=== PATIENT | female | born 1985 | race Caucasian/White ===

== ENCOUNTER → 2016-02-27 | Outpatient (CLI) | payer MEDICAID ==
[~2016-02-27] MED LIST: AMOX500T PO; BLOOD GLUCOSE T1 TES; HYDR25TA5 PO; IBUP-232 PO; LANC1MIS74; NORE1CAP PO; OXYC1TAB63 PO; PREN1PAK2 PO; SENN1TAB PO
== END ==
LOC: HPND 08:17
PROVIDERS: ATTEND Obstetrics & Gynecology Obstetrics
DX: O24.410 Gestational diabetes mellitus in pregnancy, diet controlled (principal); O34.212 Maternal care for vertical scar from previous cesarean delivery; O09.293 Supervision of pregnancy with other poor reproductive or obstetric history, third trimester; Z3A.34 34 weeks gestation of pregnancy
CPT/HCPCS: 76816

== ENCOUNTER 2016-02-28 12:25 | Emergency (ER) | payer MEDICAID ==
[~2016-02-28 12:25] MED LIST changes: -AMOX500T PO; -HYDR25TA5 PO; -IBUP-232 PO; -NORE1CAP PO; -OXYC1TAB63 PO; -SENN1TAB PO
[2016-02-28 12:45] VITALS: BP 135/82; PULSE 112
[2016-02-28] MEDS ORDERED: LACTATED RINGER'S 1000 ML INJ 1,000 ML IV SCH (13:02)
--- NOTE | 2016-02-28 13:13 | PD ---
HPI Travel History International Travel<30 Days: No Contact w/Intl Traveler<30Days: No Known Affected Area: No History of Present Illness HPI This patient is a 30-year-old 4 para 1 203 EDC is April 08, 2016 presently at 34 weeks and 2 days she presents the chief complaint of irregular cramping states occasionally her belly will get hard this is occurred for several weeks however it increased last night no ruptured membranes no vaginal bleeding the baby is active Care with [facility] course is significant for history of gestational diabetes fasting blood sugar 92 2 hour postprandials between 120 and 130 Patient is a previous 3 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 8 oz. for abruption at 35 weeks Second baby born 2006 female weight 5 lbs. 13 oz. repeat at 36 weeks Third baby born 2009 female weight 7 lbs. 1 oz. repeat at 39 weeks Past Surgical History Narrative Surgical 3 Family History Family History: Negative Social History Alcohol Use: No Tobacco Use: No Substance Abuse: No Allergies-Medications (Allergen,Severity, Reaction): Coded Allergies: No Known Allergies (Verified , 02/28/16) Home Meds Active Scripts Blood Glucose Test Strips 1 Patricia Patricia #120 EA .ROUTE DIRECTED Ref 6 Prov:Isabell Rios 01/26/16 Onetouch Delica Lancets E 1 Mis Mis #100 EA .ROUTE DIRECTED Ref 6 Prov:Isabell Rios 01/26/16 Reported Medications W/O Vit A W/ Fe Carbo Pack (Citranatal Dha Pack)27-1 & 250 Mg Pack1 Ea PO DAILY #6 BLISTER Ref 0 30 day supply. 12/27/15 Review of Systems Gastrointestinal: Abdominal Pain (irregular contractions) Physical Exam Narrative GENERAL: Well-nourished, well-developed patient. Alert oriented 3 and cooperative in no acute distress CARDIOVASCULAR: Regular rate and rhythm without murmurs, gallops, or rubs. RESPIRATORY: Breath sounds equal bilaterally. No accessory muscle use. ABDOMEN/GI: Gravid size greater than dates Gravid to [-] weeks size Fundal Height: [-] GENITOURINARY: Exam done by the nursing staff External Genitalia: intact and normal in appearance BUS glands: [-] Cervix: [-] Posterior Dilatation: [-] 1 Effacement: [-] 25% effaced Station: [-] -3 station Presentation: [-] Vertex Membranes: [intact Uterine Contractions: [-] Irregular and occasional FHT's: Category: [-] 1 Baseline: [-] 140 Reactive: [-]+ Accelerations to 165 Variability: [-] Moderate [id number]-[id number] variability Decels: [-] NEUROLOGICAL: Awake and alert. Motor and sensory grossly within normal limits. Five out of 5 muscle strength in all muscle groups. Normal speech. Data Data Vital Signs Reviewed: Yes (blood pressures 135/82 pulse is 112 she is afebrile) Orders Urinalysis - C+S If Indicated (02/28/16 13:00) Vital Signs (Adult) .ON ADMISSION (02/28/16 13:02) ^ Labor Status (02/28/16 13:02) ^ Hydration (02/28/16 13:02) Lactated Ringer's 1000 Ml Inj (Lr 1000 M (02/28/16 13:02) MDM Medical Record Reviewed: No Interpretation(s) 30-year-old 4 para 1 203 at 34 weeks and 2 days Rule out labor [place] ks contractions History of labor Previous 3 Narrative Course / MDM Patient has been hydrated with IV fluids 2 L No cervical change Category 1 tracing Culture not indicated on urinalysis Accelerations feeling much better We'll discharge home kick counts by mouth fluid hydration rest Keep her next appointment with [facility] and have them schedule her a consult for scheduling Plan External monitoring IV fluid hydration Urinalysis Rest Reevaluation Diagnosis Diagnosis: Primary Impression: [place] contractions Additional Impressions: with 34 completed weeks gestation Previous section Disposition: 01 DISCHARGE HOME Condition: Stable Melody Pritchard MD Feb 28, 2016 13:13
[2016-02-28 13:36] LABS: BLOOD, URINE NEG (NEG); COMMENT (UR) CULT NOT INDICATED; CULTURE IF INDICATED CULT NOT INDICATED; GLUCOSE,URINE NEG (NEG); KETONE, URINE 10 mg/dL (NEG); MUCUS URINE FEW /lpf (OCC); NITRITE,URINE NEG (NEG); PH, URINE 6.5 (5.0-8.5); SQUAMOUS EPITHELIAL CELL URINE 11 /hpf (0-5); URINE COLOR LIGHT-YELLOW (YELLW/STRAW)
[2016-03-12] MEDS ORDERED: AMOX500T PO (10:35)
[2016-04-29] MEDS ORDERED: NORE1CAP PO (09:23)
[2016-07-04] MEDS ORDERED: HYDR25TA5 PO (11:17)
== END 2016-02-28 15:38 | disposition home or self-care (01) ==
LOC: HOBED 12:25
DX: O47.03 False labor before 37 completed weeks of gestation, third trimester (principal); O24.419 Gestational diabetes mellitus in pregnancy, unspecified control; O34.219 Maternal care for unspecified type scar from previous cesarean delivery; Z3A.34 34 weeks gestation of pregnancy
CPT/HCPCS: 59025; 81001; 96360; 96361; 99284; J7120

== ENCOUNTER 2016-03-25 01:38 | Inpatient (IN) | payer MEDICAID ==
[~2016-03-25] VITALS: Ht 165.1 cm; Wt 83.5 kg
[~2016-03-25 01:38] MED LIST changes: +AMOX500T PO
[2016-03-25] MEDS ORDERED: LACTATED RINGER'S 1000 ML INJ 1,000 ML IV ONE (02:23)
--- NOTE | 2016-03-25 02:33 | HHI.HP ---
HPI Chief Complaint water broke Date Seen: Mar 25, 2016 Travel History International Travel<30 Days: No Contact w/Intl Traveler<30Days: No Known Affected Area: No History of Present Illness HPI This patient is a 30-year-old A 2 is 3 now at 38 wks who presents with spontaneous ruptured membranes this morning, her amnio sure is positive, no bleeding, she is chela irregularly, heart rate tracing is reactive, she has had her consult last week and here with us and she is going to [facility] for [facility] Para: 3 : 6 : 2 History Past Medical History Narrative Medical Diet controlled gestational diabetic Obstetric History Obstetric History 3 previous C-sections one termination and 1 miscarriage Past Surgical History Narrative Surgical 3 sections, one elective termination of Family History Family History: Negative Social History Alcohol Use: No Tobacco Use: No Substance Abuse: No Allergies-Medications (Allergen,Severity, Reaction): Coded Allergies: No Known Allergies (Verified , 03/19/16) Home Meds Reported Medications W/O Vit A W/ Fe Carbo Pack (Citranatal Dha Pack)27-1 & 250 Mg Pack1 Ea PO DAILY #6 BLISTER Ref 0 30 day supply. 12/27/15 Discontinued Scripts Amoxicillin 500 Mg Zlt125 Mg PO TID #21 TAB Ref 0 Prov:Bhavesh Warren MD 03/12/16 Blood Glucose Test Strips 1 Patricia Patricia #120 EA .ROUTE DIRECTED Ref 6 Prov:Isabell Rios 01/26/16 Onetouch Delica Lancets E 1 Mis Mis #100 EA .ROUTE DIRECTED Ref 6 Prov:Isabell Rios 01/26/16 Review of Systems General / Constitutional: No: Fever, Weight Gain, Chills, Other Eyes: No: Diploplia, Blurred Vision, Visual changes, Pain, Photophobia HENT: No: Headaches, Vertigo, Lightheadedness Cardiovascular: No: Irregular Rhythm, Chest Pain or Discomfort, Palpitations, Tachycardia, Syncope, Varicosities, Edema, Cyanosis Respiratory: No: Cough, Short of Breath, Other Gastrointestinal: No: Nausea, Vomiting, Diarrhea Genitourinary: No: Decreased Urinary Output, Oliguria Musculoskeletal: No: Limited ROM, Weakness, Cramping, Edema, Pain Skin: No Rash, No Itching, No Dryness, No Lumps, No Change in Pigmentation, No Change in Nails, No Alopecia, No Lesions Neurologic: No: Weakness, Dizziness, Syncope, Focal Abnormalities, Coordination Problem, Headache, Slurred Speech, Seizures Psychiatric: No: Depression, Suicidal Ideations, Homicidal Ideation Endocrine: No: Heat Intolerance, Cold Intolerance, Polydipsia, Polyuria, Other Physical Exam Narrative GENERAL: Well-nourished, well-developed patient. SKIN: Warm and dry. HEAD: Normocephalic and atraumatic. EYES: No scleral icterus. No injection or drainage. ENT: No nasal drainage noted. Mucous membranes pink. Airway patent. NECK: Supple, trachea midline. No JVD. CARDIOVASCULAR: Regular rate and rhythm without murmurs, gallops, or rubs. RESPIRATORY: Breath sounds equal bilaterally. No accessory muscle use. BREASTS: Bilateral exam showed no masses , no retractions, no nipple discharge. ABDOMEN/GI: Abdomen soft, non-tender, bowel sounds present, no rebound, no guarding Gravid to [38-] weeks size Fundal Height: [-38 cm] GENITOURINARY: External Genitalia: intact and normal in appearance BUS glands: [-] Cervix: [3-] Dilatation: [-3] Effacement: [50-] Station: [-3] Presentation: [-vtx] Membranes: ruptured] Uterine Contractions: [-irreg] FHT's: Category: [-1] Baseline: [133-] Reactive: [-yes] Variability: [mod-] Decels: [none-] EXTREMITIES: No cyanosis or edema. BACK: Nontender without obvious deformity. No CVA tenderness. NEUROLOGICAL: Awake and alert. Motor and sensory grossly within normal limits. Five out of 5 muscle strength in all muscle groups. Normal speech. Data Data Orders Ob (2e) Additional Admit Info (03/25/16 02:07) Admit To Inpatient (03/25/16 ) Vital Signs (Adult) .ON ADMISSION (03/25/16 02:23) Activity Oob Ad Concetta (03/25/16 02:23) ^ Heart (03/25/16 02:23) Urinary Catheter Management RAI.Q8H (03/25/16 02:23) ^ Preps (03/25/16 02:23) Scd / Osbaldo / Foot Pump RAI.QSHIFT (03/25/16 02:23) ^ Ultrasound For Locatio (03/25/16 02:23) Diet Npo (03/25/16 Breakfast) Lactated Ringer's 1000 Ml Inj (Lr 1000 M (03/25/16 02:23) Lactated Ringer's 1000 Ml Inj (Lr 1000 M (03/25/16 02:53) Citric Acid-Sodium Citrate Liq (Bicitra (03/25/16 04:00) Type And Screen (03/25/16 02:23) Complete Blood Count With Diff (03/25/16 02:23) Urinalysis - C+S If Indicated (03/25/16 02:23) Cefazolin Inj (Ancef Inj) (03/25/16 03:30) Specimen To Be Collected PRN (03/25/16 02:23) Rapid Plasmin Reagin Screen (03/25/16 02:24) Assessment/Plan Assessment and Plan This patient is 30-year-old previous 3 for repeat section. She is been seen by Kenzie Rios & [facility] had her consult last week. She presents now with spontaneous rupture the membranes early labor. heart rate tracing is reactive contractions are irregular. She is not having her tubes tied. Plan to proceed. Repeat at this time for delivery Pan Coleman II, MD Mar 25, 2016 02:33
[2016-03-25] MEDS ORDERED: OXYTOCIN 10 UNIT/ML AMP ONE (02:34)
[2016-03-25 02:37] LABS: BACTERIA, URINE RARE /hpf; BLOOD, URINE NEG (NEG); GLUCOSE,URINE NEG (NEG); KETONE, URINE TRACE mg/dL (NEG); NITRITE,URINE NEG (NEG); PH, URINE 6.5 (5.0-8.5); SQUAMOUS EPITHELIAL CELL URINE <1 /hpf (0-5); TRANSITIONAL EPI CELLS, URINE <1 /hpf; URINE COLOR LIGHT-YELLOW (YELLW/STRAW)
[2016-03-25 02:37] LABS: AUTOMATED NEUTROPHIL # 10.3 TH/MM3 (1.8-7.7); BASOPHIL # 0.1 TH/MM3 (0-0.2); BASOPHIL % 0.8 % (0.0-2.0); EOSINOPHIL # 0.1 TH/MM3 (0-0.4); EOSINOPHIL % 0.6 % (0.0-4.0); HEMATOCRIT 35.9 % (35.0-46.0); HEMO FLAGS DIFF FINAL; LYMPH % 15.5 % (9.0-44.0); LYMPHOCYTE # 2.1 TH/MM3 (1.0-4.8); MEAN CELL VOLUME 87.6 FL (80.0-100.0); MEAN CORPUSCULAR HEMOGLOBIN 29.9 PG (27.0-34.0); MEAN CORPUSCULAR HGB CONC 34.2 % (32.0-36.0); MONO % 5.4 % (0.0-8.0); NEUT % 77.7 % (16.0-70.0); PLATELET COUNT 245 TH/MM3 (150-450); RED CELL DISTRIBUTION WIDTH 14.8 % (11.6-17.2); WHITE BLOOD COUNT 13.3 TH/MM3 (4.0-11.0)
[2016-03-25] MEDS ORDERED: MORPHINE SULFATE PF 5 MG/10 ML VIAL ONE (02:38)
[2016-03-25] MEDS ORDERED: ONDANSETRON HCL 4 MG/2 ML VIAL ONE (02:38)
[2016-03-25] MEDS ORDERED: DICLOFENAC SODIUM 37.5 MG/ML VIAL IV PUSH ONE (02:38)
[2016-03-25] MEDS ORDERED: MORPHINE SULFATE PF 5 MG/10 ML VIAL IT ONE (02:50)
[2016-03-25 02:51] LABS: COMMENT (UR) CULT NOT INDICATED; CULTURE IF INDICATED CULT NOT INDICATED
[2016-03-25] MEDS ORDERED: LACTATED RINGER'S 1000 ML INJ 1,000 ML IV SCH ×2 (02:53→08:58)
[2016-03-25] MEDS ORDERED: METOCLOPRAMIDE HCL 10 MG/2 ML VIAL IV ONE (03:10)
[2016-03-25] MEDS ORDERED: OXYTOCIN INJ 20 UNITS in LACTATED RINGER'S 1000 ML INJ 1,000 ML IV ONE ×2 (03:16→04:00)
[2016-03-25] MEDS ORDERED: ZOLPIDEM TARTRATE 5 MG TAB PO PRN (04:00)
[2016-03-25] MEDS ORDERED: SODIUM CHLORIDE 0.9% FLUSH 5 ML FLUSH IV PRN (04:00)
[2016-03-25] MEDS ORDERED: KETOROLAC TROMETHAMINE 60 MG/2 ML (IM) VIAL IM PRN (04:00)
[2016-03-25] MEDS ORDERED: SIMETHICONE 80 MG CHEWABLE TAB PO PRN (04:00)
[2016-03-25] MEDS ORDERED: ONDANSETRON HCL 4 MG/2 ML VIAL IV PUSH PRN (04:00)
[2016-03-25] MEDS ORDERED: ACETAMINOPHEN 325 MG TAB PO PRN (04:00)
[2016-03-25] MEDS ORDERED: CITRIC ACID-SODIUM CITRATE LIQ 30 ML UDC PO SCH (04:00)
[2016-03-25] MEDS ORDERED: OXYTOCIN 30 UNITS-500ML PREMIX 500 ML IV ONE (04:00)
[2016-03-25] MEDS ORDERED: OXYTOCIN 30 UNITS-500ML PREMIX 500 ML ONE (05:16)
--- NOTE | 2016-03-25 07:22 | HHI.OB ---
Subjective Post Operative Day: 0 Remarks POD0 from rpt c/s #4. Pain well-controlled. Delivered 4 hours ago, not yet eating, voided, stooled, or ambulated. Intends to formula feed, since she has never tried breast feeding, but would be open to having market consultant come talk to her. Would like OCP for contraception. Discussed need to take progesterone only pill if she breastfeed, which appeared to lessen her interest. Will f/u with [facility]. Denies fevers/chills, SOB/chest pain, calf pain. Objective Vitals/I&O reviewed in OB trace Result Diagram: 03/25/16 0230 Objective Remarks GENERAL: Well-nourished, well-developed patient. CARDIOVASCULAR: Regular rate and rhythm without murmurs, gallops, or rubs. RESPIRATORY: Breath sounds equal bilaterally. No accessory muscle use. ABDOMEN/GI: Abdomen soft, non-tender, bowel sounds present. Incision: Clean, dry and intact. Fundus: Firm, non-tender at umbilicus. GENITOURINARY: Light to moderate bleeding. EXTREMITIES: No cyanosis or edema, non-tender, without signs of DVT. Medications and IVs Current Medications Medications (Trade) Dose Ordered Sig/Leroy Route Start Time Stop Time Status Last Admin Lactated Ringer's 1,000 ml @ 100 mls/hr Q10H IV 03/25/16 08:58 03/26/16 04:57 (Pitocin 30 Units-NS 500 ml Premix) 500 ml @ 100 mls/hr ONCE ONCE IV 03/25/16 04:00 03/25/16 08:59 (NS Flush) 2 ml BID IV 03/25/16 09:00 (NS Flush) 2 ml UNSCH PRN IV 03/25/16 04:00 (Mylicon Chew) 80 mg QID PRN PO 03/25/16 04:00 (Tylenol) 650 mg Q6H PRN PO 03/25/16 04:00 (Motrin) 600 mg Q6H PRN PO 03/25/16 04:00 (Percocet 5-325 Mg) 1 tab Q4H PRN PO 03/25/16 04:00 (Percocet 5-325 Mg) 2 tab Q4H PRN PO 03/25/16 04:00 (Sita-Colace) 2 tab Q12H PRN PO 03/25/16 04:00 (Ambien) 5 mg HS PRN PO 03/25/16 04:00 (M-M-R Ii Inj) 0.5 ml ONCE ONCE SQ 03/26/16 16:00 03/26/16 16:01 (Boostrix Inj) 0.5 ml ONCE ONCE IM 03/26/16 16:00 03/26/16 16:01 Ondansetron HCl 4 mg 4 mg Q6H PRN IV PUSH 03/25/16 04:00 (Ancef Inj/NS Inj) 100 ml @ 200 mls/hr Q8H IV 03/25/16 11:00 03/25/16 19:29 Assessment/Plan Problem List: (1) Delivery by section at 37-39 weeks of gestation due to labor (2) GBS carrier Assessment and Plan 30 year-old female PODO at 38/0 from repeat c/s (#4) and SROM/early labor. 1. Single Delivery, 38 weeks gestation -Continue routine care -Motrin and Percocet PRN pain. Miralax for Bowel Reg. PRN benadryl and PRN zofran on board. -Encouraged OOB. Advised pelvic rest for 6 wks -Follow up OB appointment in 1 week and 6 weeks with [facility] -Feeding baby by formula, as has never tried . Would be open to visit from Heading Repairer -Pt requests OCP for preferred control -H/H POD0 wnl. Mom blood type O+, Rhogam not indicated. -RPR pending 2. GBS+ -delivered via c/s, did not receive PNC DW: Dr. Talley, Dr. Coleman Discharge Planning POD0 today. Anticipate d/c in 2-3 days with VSS and pain control. Louise Escoto MD R1 Mar 25, 2016 07:22
--- NOTE | 2016-03-25 08:13 | HHI.OB ---
Subjective Post Day: 0 Remarks This patient is now 5 hours postop from a repeat section done about 3 AM this morning, she is doing well alert and active in her room, her bandages dry uterus is firm, will begin progressive postop management with advancement of diet and ambulation, seen with the family medicine residents agree with their evaluation and plan Objective Objective Remarks GENERAL: Well-nourished, well-developed patient. CARDIOVASCULAR: Regular rate and rhythm without murmurs, gallops, or rubs. RESPIRATORY: Breath sounds equal bilaterally. No accessory muscle use. ABDOMEN/GI: Abdomen soft, non-tender. Fundus: Firm, non-tender at umbilicus. GENITOURINARY: Light to moderate bleeding. EXTREMITIES: No cyanosis or edema, non-tender, without signs of DVT. Medications and IVs Current Medications Medications (Trade) Dose Ordered Sig/Leroy Route Start Time Stop Time Status Last Admin Lactated Ringer's 1,000 ml @ 100 mls/hr Q10H IV 03/25/16 08:58 03/26/16 04:57 (Pitocin 30 Units-NS 500 ml Premix) 500 ml @ 100 mls/hr ONCE ONCE IV 03/25/16 04:00 03/25/16 08:59 (NS Flush) 2 ml BID IV 03/25/16 09:00 (NS Flush) 2 ml UNSCH PRN IV 03/25/16 04:00 (Mylicon Chew) 80 mg QID PRN PO 03/25/16 04:00 (Tylenol) 650 mg Q6H PRN PO 03/25/16 04:00 (Motrin) 600 mg Q6H PRN PO 03/25/16 04:00 (Percocet 5-325 Mg) 1 tab Q4H PRN PO 03/25/16 04:00 (Percocet 5-325 Mg) 2 tab Q4H PRN PO 03/25/16 04:00 (Sita-Colace) 2 tab Q12H PRN PO 03/25/16 04:00 (Ambien) 5 mg HS PRN PO 03/25/16 04:00 (M-M-R Ii Inj) 0.5 ml ONCE ONCE SQ 03/26/16 16:00 03/26/16 16:01 (Boostrix Inj) 0.5 ml ONCE ONCE IM 03/26/16 16:00 03/26/16 16:01 Ondansetron HCl 4 mg 4 mg Q6H PRN IV PUSH 03/25/16 04:00 (Ancef Inj/NS Inj) 100 ml @ 200 mls/hr Q8H IV 03/25/16 11:00 03/25/16 19:29 Assessment/Plan Problem List: (1) Delivery by section at 37-39 weeks of gestation due to labor (2) GBS carrier Assessment and Plan 30 year-old female PODO at 38/0 from repeat c/s (#4) and SROM/early labor. 1. Single Delivery, 38 weeks gestation -Continue routine care -Motrin and Percocet PRN pain. Miralax for Bowel Reg. PRN benadryl and PRN zofran on board. -Encouraged OOB. Advised pelvic rest for 6 wks -Follow up OB appointment in 1 week and 6 weeks with [facility] -Feeding baby by formula, as has never tried . Would be open to visit from [employer] Diameter Gauger -Pt requests OCP for preferred control -H/H POD0 wnl. Mom blood type O+, Rhogam not indicated. -RPR pending 2. GBS+ -delivered via c/s, did not receive PNC DW: Dr. Talley, Dr. Coleman Discharge Planning POD0 today. Anticipate d/c in 2-3 days with VSS and pain control. Pan Coleman II, MD Mar 25, 2016 08:13
[2016-03-25] MEDS ORDERED: OXYTOCIN 30 UNITS-500ML PREMIX 500 ML IV PRN (14:00)
[2016-03-25] MEDS: oxyCODONE/ACETAMINOPHEN 5 MG/325 MG TAB PO PRN ×2 (15:36→22:09)
[2016-03-25] MEDS: IBUPROFEN 600 MG TAB PO PRN ×2 (15:38→22:09)
[2016-03-25] MEDS: DOCUSATE SODIUM 50 MG/SENNA 8.6 MG TAB PO PRN (22:09)
[2016-03-26] MEDS: oxyCODONE/ACETAMINOPHEN 5 MG/325 MG TAB PO PRN ×4 (04:06→18:14)
[2016-03-26] MEDS: IBUPROFEN 600 MG TAB PO PRN ×3 (04:06→18:14)
[2016-03-26 06:22] LABS: AUTOMATED NEUTROPHIL # 9.2 TH/MM3 (1.8-7.7); BASOPHIL % 0.4 % (0.0-2.0); EOSINOPHIL % 0.4 % (0.0-4.0); HEMATOCRIT 33.9 % (35.0-46.0); HEMO FLAGS DIFF FINAL; LYMPH % 13.4 % (9.0-44.0); LYMPHOCYTE # 1.6 TH/MM3 (1.0-4.8); MEAN CELL VOLUME 89.2 FL (80.0-100.0); MEAN CORPUSCULAR HEMOGLOBIN 29.3 PG (27.0-34.0); MEAN CORPUSCULAR HGB CONC 32.9 % (32.0-36.0); MONO % 6.9 % (0.0-8.0); NEUT % 78.9 % (16.0-70.0); PLATELET COUNT 219 TH/MM3 (150-450); RED CELL DISTRIBUTION WIDTH 15.1 % (11.6-17.2); WHITE BLOOD COUNT 11.6 TH/MM3 (4.0-11.0)
--- NOTE | 2016-03-26 08:28 | HHI.OB ---
Subjective Post Operative Day: 1 Remarks POD1 for repeat c/s (x4). Pain well-controlled. Eating, voiding, stooling, ambulating without difficulty. Encouraged OOB. Intends to formula feed, but would be open to breast feeding. did not talk to her yesterday, per pt. For control, would like Would like OCP- will follow up with [facility] in 1 week to obtain. Denies fevers/chills, SOB/chest pain, calf pain. ( Louise Escoto MD R1) Objective Vitals/I&O Reviewed in [facility]. AFVSS (Louise Escoto MD R1) Result Diagram: 03/26/16 06 Objective Remarks GENERAL: Well-nourished, well-developed AA female. CARDIOVASCULAR:RRR/ No murmurs. RESPIRATORY: Lungs CTAB. No wheezing. ABDOMEN/GI: Abdomen soft, no masses Incision: Clean, dry and intact. Wearing pad over incision site- no bleeding. No erythema Fundus: Firm, minimially tender, inferior to umbilicus. GENITOURINARY: Minimal bleeding EXTREMITIES: No peripheral edema Medications and IVs Current Medications Medications (Trade) Dose Ordered Sig/Leroy Route Start Time Stop Time Status Last Admin (NS Flush) 2 ml BID IV 03/25/16 09:00 (NS Flush) 2 ml UNSCH PRN IV 03/25/16 04:00 (Mylicon Chew) 80 mg QID PRN PO 03/25/16 04:00 (Tylenol) 650 mg Q6H PRN PO 03/25/16 04:00 (Motrin) 600 mg Q6H PRN PO 03/25/16 04:00 03/26/16 04:06 (Percocet 5-325 Mg) 1 tab Q4H PRN PO 03/25/16 04:00 03/26/16 08:01 (Percocet 5-325 Mg) 2 tab Q4H PRN PO 03/25/16 04:00 (Sita-Colace) 2 tab Q12H PRN PO 03/25/16 04:00 03/25/16 22:09 (Ambien) 5 mg HS PRN PO 03/25/16 04:00 (M-M-R Ii Inj) 0.5 ml ONCE ONCE SQ 03/26/16 16:00 03/26/16 16:01 (Boostrix Inj) 0.5 ml ONCE ONCE IM 03/26/16 16:00 03/26/16 16:01 (Zofran Inj) 4 mg Q6H PRN IV PUSH 03/25/16 04:00 (Louise Escoto MD R1) Assessment/Plan Problem List: (1) Delivery by section at 37-39 weeks of gestation due to labor (2) GBS carrier Assessment and Plan 30 year-old female POD1 at 38/0 from repeat c/s (#4) secondary to SROM/ early labor. 1. Delivery by section at 37-39 weeks of gestation due to labor -Continue routine care -Motrin and Percocet PRN pain. Miralax for Bowel Reg. PRN Benadryl and PRN Zofran on board. -Encouraged OOB. Advised pelvic rest for 6 wks -Follow up OB appointment in 1 week and 6 weeks with [facility] -Feeding baby by formula, as has never tried . Would be open to visit from [employer] Letter Carrier -Pt requests OCP for preferred control -H/H 11.2/33.9, leukocytosis decreasing, afebrile -Mom blood type O+, Rhogam not indicated -RPR non-reactive 2. GBS+ -delivered via c/s, did not receive PNC DW: Dr. Talley, Dr. Ivory Discharge Planning POD1 today. Anticipate d/c 1-2 days pending VSS and pain control. Pt preference would be tomorrow. (Louise Escoto MD R1) Attestation Agree with inpatient care plans. (Breana Ivory MD) Louise Escoto MD R1 Mar 26, 2016 08:28 Breana Ivory MD Mar 26, 2016 09:20
[2016-03-26] MEDS: DOCUSATE SODIUM 50 MG/SENNA 8.6 MG TAB PO PRN (12:33)
--- NOTE | 2016-03-26 13:30 | MP ---
cc: MARQUISE COLEMAN MD DATE OF SURGERY 03/25/2016 PREOPERATIVE DIAGNOSIS Previous section x 3 with spontaneous rupture of the membranes at 38 weeks, for repeat section. POSTOPERATIVE DIAGNOSIS Previous section x 3 with spontaneous rupture of the membranes at 38 weeks, for repeat section. PROCEDURE Repeat low transverse section. SURGEON Marquise Coleman MD DOLPHIN TRAINER Dr. Valentin Rios. ANESTHESIA Spinal. PREOP NOTE The patient is a 30-year-old G6, P3, previous section x 3 with spontaneous rupture of membranes, now for repeat section. PROCEDURE The patient was taken to the operating room and placed in the supine position on the operating room table. After adequate spinal anesthesia was administered, she was prepped and draped for abdominal surgery. A previous Pfannenstiel incision was excised out and cast off the field, the incision carried to the fascia with Bovie cautery, hemostasis achieved. The fascia was incised laterally and reflected off the rectus muscle and the cavity entered at that time. The fascia was also dissected off the lower rectus muscle edge. The incision was stretched open and the bladder blade placed in the lower edge of the incision. The visceral peritoneum was reflected off the lower uterine segment and placed under bladder blade. A transverse hysterotomy was made and extended bluntly bilaterally, clear fluid noted. A female infant was delivered from vertex presentation, 3390 grams, Apgars of 9 and 9. There were no complications. Cord blood obtained, placenta manually extracted and the uterus exteriorized. The hysterotomy was closed with a running layer of 0 chromic followed by imbricating suture of same. Hemostasis was achieved. The bladder was reapproximated with 2-0 Vicryl in a running suture. The uterus was elevated and blood sucked from the cul-de-sac and the uterus was replaced in the peritoneal cavity. The rectus muscle was reapproximated with several stick ties of Vicryl. The fascia was closed in a running layer of 0 Vicryl. The subcutaneous tissues were freed up with Bovie cautery and then the skin closed with 3-0 Monocryl in a subcuticular stitch. Pressure dressing was applied. Estimated blood loss was 500 cc. There were no complications. Sponge and needle counts were correct x 2 and the patient taken to Recovery in stable condition, the baby to the well baby nursery. MD SHALA Cosby/SUZIE /4:06 AM /1:20 PM
[2016-03-26] MEDS ORDERED: DIPHTH/TETANUS/ACEL PERTUSSIS (BOOSTER) 0.5 ML VIAL/PFS IM ONE (16:00)
[2016-03-26] MEDS ORDERED: MEASLES, MUMPS, RUBELLA VACCINE 0.5 ML VIAL SQ ONE (16:00)
[2016-03-26] MEDS: SODIUM CHLORIDE 0.9% FLUSH 5 ML FLUSH IV SCH (21:00)
[2016-03-27] MEDS: oxyCODONE/ACETAMINOPHEN 5 MG/325 MG TAB PO PRN ×2 (00:04→06:59)
[2016-03-27] MEDS: IBUPROFEN 600 MG TAB PO PRN ×2 (00:05→06:59)
[2016-03-27] MEDS ORDERED: IBUP-232 PO (07:15)
[2016-03-27] MEDS ORDERED: OXYC1TAB63 PO (07:15)
[2016-03-27] MEDS ORDERED: SENN1TAB PO (07:15)
--- NOTE | 2016-03-27 07:26 | HHI.DCPOC ---
Discharge Care Plan Diagnosis: (1) Delivery by section at 37-39 weeks of gestation due to labor Report Symptoms to Your Doctor -Temperate above 100.5 degrees -Redness, of incision or excessive or foul smelling drainage -Unusual pain or calf pain -Increased vaginal bleeding -Painful or difficulty urinating -Feelings of extreme sadness or anxiety after 2 weeks Goals to Promote Your Health * To prevent worsening of your condition and complications * To maintain your health at the optimal level Directions to Meet Your Goals Take your medications as prescribed Follow your dietary instruction Follow activity as directed Ensure plenty of rest for recovery Drink fluids for hydration Keep your appointments as scheduled Take your immunizations and boosters as scheduled If your symptoms worsen call your PCP, if no PCP go to Urgent Care Center or Emergency Room Smoking is Dangerous to Your Health. Avoid second hand smoke Call the 24-hour crisis hotline for domestic abuse at Jeremy Talley MD R2 Mar 27, 2016 07:26
--- NOTE | 2016-03-27 08:16 | HHI.OB ---
Subjective Post Operative Day: 2 Remarks Patient is doing well this morning. She is ambulating and voiding without difficulty. Vaginal bleeding less than yesterday. Pain is controlled with medications. Formula feeding. She would like to go home today. No chest pain , nausea, vomiting, shortness of breath fever, chills. Objective Result Diagram: 03/26/16 06 Objective Remarks GENERAL: Well-nourished, well-developed AA female. CARDIOVASCULAR:RRR/ No murmurs. RESPIRATORY: Lungs CTAB. No wheezing. ABDOMEN/GI: Abdomen soft, no masses Incision: Clean, dry and intact. Wearing pad over incision site- no bleeding. No erythema Fundus: Firm, minimially tender, inferior to umbilicus. GENITOURINARY: Minimal bleeding EXTREMITIES: No peripheral edema Medications and IVs Current Medications Medications (Trade) Dose Ordered Sig/Leroy Route Start Time Stop Time Status Last Admin (NS Flush) 2 ml BID IV 03/25/16 09:00 (NS Flush) 2 ml UNSCH PRN IV 03/25/16 04:00 (Mylicon Chew) 80 mg QID PRN PO 03/25/16 04:00 (Tylenol) 650 mg Q6H PRN PO 03/25/16 04:00 (Motrin) 600 mg Q6H PRN PO 03/25/16 04:00 03/27/16 06:59 (Percocet 5-325 Mg) 1 tab Q4H PRN PO 03/25/16 04:00 03/26/16 08:01 (Percocet 5-325 Mg) 2 tab Q4H PRN PO 03/25/16 04:00 03/27/16 06:59 (Sita-Colace) 2 tab Q12H PRN PO 03/25/16 04:00 03/26/16 12:33 (Ambien) 5 mg HS PRN PO 03/25/16 04:00 (Zofran Inj) 4 mg Q6H PRN IV PUSH 03/25/16 04:00 Assessment/Plan Problem List: (1) Delivery by section at 37-39 weeks of gestation due to labor Assessment and Plan 30 year-old female POD2 at 38/0 from repeat c/s (#4) secondary to SROM/ early labor. 1. Delivery by section at 37-39 weeks of gestation due to labor -Continue routine care -Motrin and Percocet PRN pain. -Encouraged OOB. Advised pelvic rest for 6 wks -Follow up OB appointment in 1 week and 6 weeks with [facility] -Feeding baby by formula -Pt requests OCP for preferred control -H/H 11.2/33.9, leukocytosis decreasing, afebrile -Mom blood type O+, Rhogam not indicated -RPR non-reactive DW: OB hospitalist Discharge Planning Likely today. Jeremy Talley MD R2 Mar 27, 2016 08:16 Jeremy Talley MD R2 Mar 27, 2016 08:16
[2016-03-27] MEDS: SODIUM CHLORIDE 0.9% FLUSH 5 ML FLUSH IV SCH (09:00)
[2016-04-29] MEDS ORDERED: NORE1CAP PO (09:23)
[2016-07-04] MEDS ORDERED: HYDR25TA5 PO (11:17)
== END 2016-03-27 13:41 | disposition home or self-care (01) | DRG 766 ==
LOC: HOBED 01:38 → H2EB 02:08 → H1EA 05:44
PROVIDERS: ADMIT Obstetrics & Gynecology Maternal & Fetal Medicine; ATTEND Obstetrics & Gynecology Maternal & Fetal Medicine
PROC: 10D00Z1 Extraction of Products of Conception, Low, Open Approach (ICD-10-PCS; principal; 2016-03-25)
DX: O34.211 Maternal care for low transverse scar from previous cesarean delivery (principal); O99.824 Streptococcus B carrier state complicating childbirth; Z3A.38 38 weeks gestation of pregnancy; Z37.0 Single live birth; Z86.32 Personal history of gestational diabetes
CPT/HCPCS: 81001; 82948; 84112; 85025; 86592; 86850; 86900; 86901; 90715; 99285; J0690; J1130; J2274; J2405; J2590; J2765; J7120

== ENCOUNTER 2017-01-22 20:54 | Emergency (ER) | payer SELFPAY ==
[2017-01-22 20:57] VITALS: BP 154/73; PULSE 87; RESP 16; TEMP 98; O2SAT 100
[2017-01-22] MEDS ORDERED: ACYC800T PO (21:37)
--- NOTE | 2017-01-22 21:40 | PD ---
HPI Chief Complaint: Skin Problem Time Seen by Provider: 21:35 Travel History International Travel<30 days: No Contact w/Intl Traveler<30days: No Traveled to known affect area: No History of Present Illness HPI Examined in the presence of a female nurse. 31-year-old female presents for evaluation of rash. Symptoms started 4 days ago. The rash is painful, burning , constant, worse with palpation, localized to left lower back. Denies fevers, chills, sick contacts, recent travel, upper respiratory symptoms, nausea or vomiting. No other complaints. PFSH Past Medical History Diminished Hearing: No ?: LMP: 12/19/16 : 5 Para: 3 Miscarriage: 0 : 1 Past Surgical History Section: Yes (X3) Gynecologic Surgery: Yes ( X 3) Social History Alcohol Use: No Tobacco Use: No Substance Use: No Allergies-Medications (Allergen,Severity, Reaction): Coded Allergies: No Known Allergies (Verified , 07/09/16) Reported Meds & Prescriptions Reported Meds & Active Scripts Active Acyclovir 800 Mg Tab 800 Mg PO 5 TIMES A DAY 7 Days Review of Systems Except as stated in HPI: all other systems reviewed are Neg Physical Exam Narrative GENERAL: Well-developed well-nourished male in no acute distress SKIN: Warm and dry. Vesicular rash localized to left lower back at the L5 dermatomal distribution. HEAD: Atraumatic. Normocephalic. EYES: Pupils equal and round. No scleral icterus. No injection or drainage. ENT: No nasal bleeding or discharge. Mucous membranes pink and moist. NECK: Trachea midline. No JVD. CARDIOVASCULAR: Regular rate and rhythm. No murmur appreciated. RESPIRATORY: No accessory muscle use. Clear to auscultation. Breath sounds equal bilaterally. GASTROINTESTINAL: Abdomen soft, non-tender, nondistended. Hepatic and splenic margins not palpable. MUSCULOSKELETAL: No obvious deformities. No clubbing. No cyanosis. No edema. NEUROLOGICAL: Awake and alert. No obvious cranial nerve deficits. Motor grossly within normal limits. Normal speech. PSYCHIATRIC: Appropriate mood and affect; insight and judgment normal. Data Data Last Documented VS Vital Signs Date Time Temp Pulse Resp B/P (MAP) Pulse Ox O2 Delivery O2 Flow Rate FiO2 01/22/17 20:57 98.0 87 16 154/73 (100) 100 Room Air Orders Orders Ed Discharge Order (01/22/17 21:37) [facility] Medical Decision Making Medical Screen Exam Complete: Yes Emergency Medical Condition: Yes Medical Record Reviewed: Yes Differential Diagnosis Shingles, allergic contact dermatitis, irritant contact dermatitis. Narrative Course Examination is wholly consistent with shingles at the L5 dermatomal distribution. She is being discharged with acyclovir. Diagnosis Primary Impression: Shingles Additional Instructions: Medication as prescribed. Avoid adults who have not been exposed to chickenpox in the past, avoid children who have not been vaccinated against chickenpox, avoid the elderly and those on chemotherapy or other immunosuppressive medications. Return for any emergent medical conditions. Med/Other Pt SpecificInfo: Prescription(s) given Scripts Acyclovir (Acyclovir) 800 Mg Tab 800 MG PO 5 TIMES A DAY for Mgmt Viral Infection for 7 Days, TAB 0 Refills Prov: Sanjeev Yoder MD 01/22/17 Disposition: 01 DISCHARGE HOME Condition: Stable Stanford Drake Jan 22, 2017 21:40
== END 2017-01-22 22:05 | disposition home or self-care (01) ==
LOC: NEPD 20:54
DX: B02.9 Zoster without complications (principal); Z79.899 Other long term (current) drug therapy
CPT/HCPCS: 99283

== ENCOUNTER → 2017-04-30 | Outpatient (CLI) | payer MEDICAID ==
[~2017-04-30] MED LIST changes: +ACYC800T PO; -AMOX500T PO; -BLOOD GLUCOSE T1 TES; -LANC1MIS74; -PREN1PAK2 PO
== END ==
LOC: HPND 08:23
PROVIDERS: ATTEND Obstetrics & Gynecology
DX: O09.892 Supervision of other high risk pregnancies, second trimester (principal); O99.212 Obesity complicating pregnancy, second trimester; E66.09 Other obesity due to excess calories; Z68.31 Body mass index [BMI] 31.0-31.9, adult
CPT/HCPCS: 76811; 76817

== ENCOUNTER → 2017-06-06 | Outpatient (CLI) | payer MEDICAID | LOC: CDED 08:27 | PROVIDERS: ATTEND Obstetrics & Gynecology | DX: O24.419 Gestational diabetes mellitus in pregnancy, unspecified control (principal) | CPT/HCPCS: 97803 ==

== ENCOUNTER → 2017-07-04 | Outpatient (CLI) | payer MEDICAID | LOC: HPND 09:19 | PROVIDERS: ATTEND Obstetrics & Gynecology | DX: O24.410 Gestational diabetes mellitus in pregnancy, diet controlled (principal) | CPT/HCPCS: 76816 ==

== ENCOUNTER 2017-07-28 21:47 | Emergency (ER) | payer MEDICAID ==
--- NOTE | 2017-07-28 22:54 | PD ---
HPI Chief Complaint Abdominal pain Date Seen: Jul 28, 2017 Time Seen: 22:49 Travel History International Travel<30 Days: No Contact w/Intl Traveler<30Days: No Known Affected Area: No History of Present Illness HPI 32-year-old who is at 31 weeks 4 days comes in complaining of abdominal pain intermittently for the past few hours. Patient states that this is been happening every evening for the past week, each episode lasts 3-4 hours and then it resolves when she falls asleep. No symptoms during the day. Patient denies vaginal bleeding, vaginal discharge, or rupture membranes. Patient has had 4 prior sections, the earliest baby was at 36 weeks gestation was 5 lbs. 12 oz. This has been complicated by diet-controlled gestational diabetes with an Accu-Chek of 94 on arrival tonight Weeks Gestation: 31 Para: 4 : 7 History Past Medical History Medical History: Denies Significant Hx Obstetric History Obstetric History section 4 Diet-controlled gestational diabetes this Past Surgical History Narrative Surgical 4 Family History Family History: Negative Social History Alcohol Use: No Tobacco Use: No Substance Abuse: No Allergies-Medications (Allergen,Severity, Reaction): Coded Allergies: No Known Allergies (Verified , 07/09/16) Home Meds Active Scripts Acyclovir (Acyclovir) 800 Mg Tab, 800 MG PO 5 TIMES A DAY for Mgmt Viral Infection for 7 Days, TAB 0 Refills Prov:Sanjeev Yoder MD 01/22/17 Review of Systems Except as stated in HPI: all other systems reviewed are Neg Physical Exam Narrative GENERAL: Well-nourished, well-developed patient. SKIN: Warm and dry. HEAD: Normocephalic and atraumatic. EYES: No scleral icterus. No injection or drainage. ENT: No nasal drainage noted. Mucous membranes pink. Airway patent. NECK: Supple, trachea midline. No JVD. CARDIOVASCULAR: Regular rate and rhythm without murmurs, gallops, or rubs. RESPIRATORY: Breath sounds equal bilaterally. No accessory muscle use. ABDOMEN/GI: Abdomen soft, non-tender, bowel sounds present, no rebound, no guarding Gravid to [35-] weeks size Fundal Height: [-] GENITOURINARY: External Genitalia: intact and normal in appearance BUS glands: [-] Normal Cervix: [-] Posterior Dilatation: [-] Closed Effacement: [-] Long Station: [-] High Presentation: [-] Vertex Membranes: [intact or ruptured] Uterine Contractions: [-] 1 contraction every 15-20 minutes FHT's: Category: [-] 1 Baseline: [-] 140 Reactive: [-] Moderate Variability: [-] Moderate Decels: [-] Absent EXTREMITIES: No cyanosis or edema. BACK: Nontender without obvious deformity. No CVA tenderness. NEUROLOGICAL: Awake and alert. Motor and sensory grossly within normal limits. Five out of 5 muscle strength in all muscle groups. Normal speech. Data Data Vital Signs Reviewed: Yes Orders Orders Vital Signs (Adult) .ON ADMISSION (07/28/17 22:47) ^ Labor Status (07/28/17 22:47) Urinalysis - C+S If Indicated (07/28/17 22:47) ^ Non Stress Test (07/28/17 22:47) Fibronectin (07/28/17 22:47) Labs Laboratory Tests Test 07/28/17 22:05 07/28/17 22:45 Urine Color YELLOW Urine Turbidity HAZY Urine pH 6.0 Urine Specific [place] 1.020 Urine Protein NEG mg/dL Urine Glucose (UA) NEG mg/dL Urine Ketones NEG mg/dL Urine Occult Blood NEG Urine Nitrite NEG Urine Bilirubin NEG Urine Urobilinogen LESS THAN 2 mg/dL Urine Leukocyte Esterase SMALL Urine RBC 1 /hpf Urine WBC 3 /hpf Urine Squamous Epithelial Cells 8 /hpf Urine Amorphous Sediment RARE Urine Mucus FEW /lpf Microscopic Urinalysis Comment CULT NOT INDICATED Fibronectin NEGATIVE MDM Medical Record Reviewed: Yes Plan 32-year-old at 31 weeks 4 days with lower abdominal pain and occasional contractions Negative fibronectin and normal urinalysis. Reevaluation notes the contractions have resolved Previous section 4 Diet-controlled gestational diabetes Diagnosis Diagnosis: Primary Impression: 31 weeks gestation of Additional Impressions: Abdominal pain during in third trimester Previous section complicating , antepartum condition or complication Diet controlled gestational diabetes mellitus (GDM) in third trimester Disposition: DISCHARGE HOME Patient Instructions: General Instructions Departure Forms: Tests/Procedures Breana Ivory MD Jul 28, 2017 22:54
[2017-07-28 23:11] LABS: AMORPHOUS SEDIMENT, URINE RARE; BILIRUBIN, URINE NEG (NEG); BLOOD, URINE NEG (NEG); GLUCOSE,URINE NEG (NEG); KETONE, URINE NEG (NEG); MUCUS URINE FEW /lpf (OCC); NITRITE,URINE NEG (NEG); SQUAMOUS EPITHELIAL CELL URINE 8 /hpf (0-5); URINE COLOR YELLOW (YELLW/STRAW); URINE LEUKOCYTE ESTERASE SMALL (NEG)
== END 2017-07-28 23:53 | disposition home or self-care (01) ==
LOC: HOBED 21:47
DX: O26.893 Other specified pregnancy related conditions, third trimester (principal); R10.30 Lower abdominal pain, unspecified; O34.219 Maternal care for unspecified type scar from previous cesarean delivery; O24.410 Gestational diabetes mellitus in pregnancy, diet controlled; Z3A.31 31 weeks gestation of pregnancy; Z79.899 Other long term (current) drug therapy
CPT/HCPCS: 81001; 82731; 82948; 99284

== ENCOUNTER → 2017-08-01 | Outpatient (CLI) | payer MEDICAID | LOC: HPND 10:09 | PROVIDERS: ATTEND Obstetrics & Gynecology | DX: O24.410 Gestational diabetes mellitus in pregnancy, diet controlled (principal) | CPT/HCPCS: 76816 ==

== ENCOUNTER 2017-09-18 11:09 | Inpatient (IN) ==
--- NOTE | 2017-09-18 11:39 | P.HPOB ---
History of Present Illness Primary Care Physician: No Primary Care Physician Chief Complaint: scheduled repeat History of Present Illness: 32-year-old female at 39 weeks presents for scheduled repeat . No vaginal bleeding, loss of fluids, or decreased movement. She is having contractions about every 7 minutes. Denies shortness of breath, chest pain, or headache. Denies any abdominal pain or urinary symptoms. During had gestational diabetes taking glyburide 5 mg, but has not taken it this week because it makes her feel like her sugars are getting too low. GBS positive. 4 previous C-sections 2 term and 2 . One miscarriage and one . Weeks Gestation:: 39 Para: 4 : 7 - Inpatient Certification I certify that the inpatient services were ordered in accordance with Medicare regulations governing the order. This includes certification that hospital inpatient services are reasonable and necessary and in the case of services not specified as inpatient-only under 42 CFR 419.22(n), that they are appropriately provided as inpatient services in accordance to with the 2-midnight benchmark under 43 CFR 412.3(e) Estimated Total Length of Stay (Days): 3 Plans for Post Hospital Care: Home [facility] - Surgical History Surgical History: Surgical History (Last Updated 08/28/17 @ 10:33 by Pan Coleman MD) Hx of section - Family History Family History: Family History (Last Updated 08/28/17 @ 02:58 by Jose Casey MD) Mother No problems noted. Other Family history of diabetes mellitus Family history of hypertension - Tobacco History Second Hand Smoke Exposure: No Smoking Status: Never smoker - Alcohol History How Often Do You Have a Drink Containing Alcohol: Never - Substance Use History Substance History: No History of Abuse - Travel History History of Recent Travel: No Medications and Allergies Active Medications: Active Medications Citric Acid/Sodium Citrate (Sodium Citrate/Citric Acid Liq) 30 ml PO MARKETING OPERATIONS CONSULTANT JAN Stop: 09/22/17 11:44 Cefazolin Sodium 2,000 mg/ (Sodium Chloride) 100 mls @ 200 mls/hr IV.SIG MARKETING OPERATIONS CONSULTANT JAN Stop: 09/22/17 11:59 Lactated Ringer's (Lr 1000 Ml Inj) 1,000 mls @ 2,000 mls/hr IV.SIG .Q30M ONE Stop: 09/18/17 12:04 Lactated Ringer's (Lr 1000 Ml Inj) 1,000 mls @ 150 mls/hr IV.CONT .Q6H40M JAN Allergies Allergy/AdvReac Type Severity Reaction Status Date / Time No Known Allergies Allergy Uncoded 07/09/16 09:46 Home Medications Medication Instructions Recorded Confirmed Type RX: glyburide 5 mg PO BID 08/28/17 08/28/17 History Exam Narrative: GENERAL: Well-nourished, well-developed patient. SKIN: Warm and dry. HEAD: Normocephalic and atraumatic. EYES: No scleral icterus. No injection or drainage. ENT: No nasal drainage noted. Mucous membranes pink. Airway patent. NECK: Supple, trachea midline. No JVD. CARDIOVASCULAR: Regular rate and rhythm without murmurs, gallops, or rubs. RESPIRATORY: Breath sounds equal bilaterally. No accessory muscle use. BREASTS: Bilateral exam showed no masses , no retractions, no nipple discharge. ABDOMEN/GI: Abdomen soft, non-tender, bowel sounds present, no rebound, no guarding EXTREMITIES: No cyanosis or edema. BACK: Nontender without obvious deformity. No CVA tenderness. NEUROLOGICAL: Awake and alert. Motor and sensory grossly within normal limits. Five out of 5 muscle strength in all muscle groups. Normal speech. FHT: Category 1, moderate variability, baseline 140, acels, no decels, contractions every 7 minutes Caprini VTE Risk Assessment Caprini VTE Risk Assessment: No/Low Risk (score <= 1) Caprini Risk Assessment Model: Point Value = 1 Point Value = 2 Point Value = 3 Point Value = 5 Age 41-60 Minor surgery BMI > 25 kg/m2 Swollen legs Varicose veins or History of unexplained or recurrent spontaneous Oral contraceptives or hormone replacement Sepsis (< 1 month) Serious lung disease, including pneumonia (< 1 month) Abnormal pulmonary function Acute myocardial infarction Congestive heart failure (< 1 month) History of inflammatory bowel disease Medical patient at bed rest Age 61-74 Arthroscopic surgery Major open surgery (> 45 min) Laparoscopic surgery (> 45 min) Malignancy Confined to bed (> 72 hours) Immobilizing plaster cast Central venous access Age >= 75 History of VTE Family history of VTE Factor V Leiden Prothrombin [id number] Lupus anticoagulant Anticardiolipin antibodies Elevated serum homocysteine Heparin-induced thrombocytopenia Other congenital or acquired thrombophilia Stroke (< 1 month) Elective arthroplasty Hip, pelvis, or leg fracture Acute spinal cord injury (< 1 month) Prophylaxis Regimen: Total Risk Factor Score Risk Level Prophylaxis Regimen 0-1 Low Early ambulation 2 Moderate Order ONE of the following: *Sequential Compression Device (SCD) *Heparin 5000 units SQ BID 3-4 Higher Order ONE of the following medications: *Heparin 5000 units SQ TID *Enoxaparin/Lovenox 40 mg SQ daily (WT < 150 kg, CrCl > 30 mL/min) *Enoxaparin/Lovenox 30 mg SQ daily (WT < 150 kg, CrCl > 10-29 mL/min) *Enoxaparin/Lovenox 30 mg SQ BID (WT < 150 kg, CrCl > 30 mL/min) AND/OR *Sequential Compression Device (SCD) 5 or more Highest Order ONE of the following medications: *Heparin 5000 units SQ TID (Preferred with Epidurals) *Enoxaparin/Lovenox 40 mg SQ daily (WT < 150 kg, CrCl > 30 mL/min) *Enoxaparin/Lovenox 30 mg SQ daily (WT < 150 kg, CrCl > 10-29 mL/min) *Enoxaparin/Lovenox 30 mg SQ BID (WT < 150 kg, CrCl > 30 mL/min) AND *Sequential Compression Device (SCD) Assessment and Plan - Diagnosis (1) Gestational diabetes mellitus (GDM) in third trimester Code(s): O24.419 - Gestational diabetes mellitus in , unspecified control Status: Acute Plan: 32-year-old female at 39 weeks presenting for repeat . Gestational diabetes on glyburide 5 mg not taking for the past week. No complaints today. No loss of fluids, vaginal bleeding, or decreased movement. Contractions every 7 minutes. -Follow up on lab results -Admit to labor and delivery for -Anceph 2mg
[2017-09-18] MEDS ORDERED: Citric Acid/Sodium Citrate Liq 30 ML UDC PO SCH (11:45)
[2017-09-18] MEDS ORDERED: Phenylephrine/NS 1000 MCG/10ML Syringe IV.PUSH ONE (12:00)
[2017-09-18] MEDS ORDERED: ceFAZolin Inj 2,000 MG in Sodium Chlor 0.9% Inj 80 ML IV.SIG SCH (12:00)
[2017-09-18 12:32] LABS: Baso % (Auto) 0.4 % (0.0-2.0); Eos % (Auto) 0.3 % (0.0-4.0); Hematocrit 37.2 % (35.0-46.0); Hemoglobin 12.5 gm/dL (11.6-15.3); Lymph # (Auto) 1.4 th/mm3 (1.0-4.8); Lymph % (Auto) 15.4 % (9.0-44.0); Mean Corpuscular HGB Conc 33.6 % (32.0-36.0); Mean Corpuscular Hemoglobin 30.3 pg (27.0-34.0); Mean Platelet Volume 8.5 fL (7.0-11.0); Mono # (Auto) 0.4 th/mm3 (0.0-0.9); Mono % (Auto) 4.3 % (0.0-8.0); Neut # (Auto) 7.1 th/mm3 (1.8-7.7); Neut % (Auto) 79.6 % (16.0-70.0); Platelet Count 250 th/mm3 (150-450); Red Blood Count 4.13 mil/mm3 (4.00-5.30); Red Cell Distribution Width 14.6 % (11.6-17.2); White Blood Count 8.9 th/mm3 (4.0-11.0)
[2017-09-18] MEDS ORDERED: Morphine Sulfate PF Inj 5 MG/10 ML Ampul ONE (13:16)
[2017-09-18 13:52] LABS: Bacteria,Urine Rare /hpf; Bilirubin,Urine Negative (Negative); Clarity,Urine Hazy (Clear); Color,Urine Amber (Yellw/Straw); Glucose,Urine (UA) Negative (Negative); Leukocyte Esterase,Urine Negative (Negative); Nitrite,Urine Negative (Negative); Specific Gravity,Urine 1.023 (1.002-1.035); Squamous Epithelial Cell,Urine 16 /hpf (0-5)
[2017-09-18] MEDS ORDERED: Oxytocin 30 Units/500ml Premix 30 UNITS/500 ML BAG IV.SIG ONE (16:25)
[2017-09-18] MEDS ORDERED: Simethicone 80 MG Chew Tablet PO PRN (16:25)
[2017-09-18] MEDS ORDERED: Oxytocin 30 Units/500ml Premix 30 UNITS/500 ML BAG ONE (17:45)
[2017-09-18] MEDS ORDERED: Ketorolac Inj 30 MG/ML (IVP) Vial IV.PUSH ONE (19:45)
[2017-09-18] MEDS ORDERED: Naloxone Inj 0.4 MG/ML Vial IV.PUSH PRN (20:20)
[2017-09-18] MEDS ORDERED: Oxytocin 30 Units/500ml Premix 30 UNITS/500 ML BAG IV.SIG PRN (21:25)
[2017-09-18] MEDS: ceFAZolin Inj 2,000 MG in Sodium Chlor 0.9% Inj 80 ML IV.SIG SCH (22:58)
[2017-09-19 01:11] LABS: Amphetamine Screen,Urine Neg (Neg); Barbiturate Screen,Urine Neg (Neg); Cannabinoid Screen,Urine Neg (Neg); Cocaine Screen,Urine Neg (Neg)
[2017-09-19 01:14] LABS: Opiate Screen,Urine Neg (Neg)
[2017-09-19] MEDS: Ibuprofen 600 MG Tablet PO PRN ×3 (02:33→20:48)
[2017-09-19 05:58] LABS: Baso % (Auto) 0.2 % (0.0-2.0); Eos % (Auto) 0.3 % (0.0-4.0); Hematocrit 34.8 % (35.0-46.0); Hemoglobin 11.6 gm/dL (11.6-15.3); Lymph # (Auto) 1.2 th/mm3 (1.0-4.8); Mean Corpuscular HGB Conc 33.3 % (32.0-36.0); Mean Corpuscular Volume 90.1 fL (80.0-100.0); Mean Platelet Volume 7.9 fL (7.0-11.0); Mono # (Auto) 0.5 th/mm3 (0.0-0.9); Mono % (Auto) 4.5 % (0.0-8.0); Neut # (Auto) 9.5 th/mm3 (1.8-7.7); Platelet Count 234 th/mm3 (150-450); Red Blood Count 3.86 mil/mm3 (4.00-5.30); White Blood Count 11.3 th/mm3 (4.0-11.0)
[2017-09-19] MEDS: ceFAZolin Inj 2,000 MG in Sodium Chlor 0.9% Inj 80 ML IV.SIG SCH (07:29)
--- NOTE | 2017-09-19 07:55 | P.PNOB ---
Subjective Post op day: 1 Interval history: Doing well Pain is controlled Baby is doing well Objective Vital Signs/I&O: Intake & Output 09/18/17 09/19/17 09/19/17 18:59 06:59 18:59 Intake Total 100 / 100 Balance 100 / 100 Weight 83.461 kg Intake: IV 100 / 100 Ancef Inj 2,000 MG In NS Inj 80 100 / 100 ML @ 200 mls/hr IV.SIG Q8H [facility] Rx#:[id number] Result Diagrams: 09/19/17 05:13 Objective Remarks: GENERAL: Well-nourished, well-developed patient. CARDIOVASCULAR: Regular rate and rhythm without murmurs, gallops, or rubs. RESPIRATORY: Breath sounds equal bilaterally. No accessory muscle use. ABDOMEN/GI: Abdomen soft, non-tender, bowel sounds present. Incision: bandage is dry. Fundus: Firm, non-tender at umbilicus. GENITOURINARY: Light to moderate bleeding. EXTREMITIES: No cyanosis or edema, non-tender, without signs of DVT. Medications and IVs: Active Medications Citric Acid/Sodium Citrate (Sodium Citrate/Citric Acid Liq) 30 ml PO FACILITIES TECHNICIAN [facility] Stop: 09/22/17 11:44 Last Admin: 09/18/17 13:56 Dose: 30 ml Diphenhydramine HCl (Benadryl) 50 mg PO Q6H PRN PRN Reason: MILD TO MODERATE ITCHING Stop: 09/19/17 20:19 Last Admin: 09/18/17 22:58 Dose: 50 mg Diphenhydramine HCl (Benadryl Inj) 25 mg IV.PUSH Q6H PRN PRN Reason: MILD TO MODERATE ITCHING Stop: 09/19/17 20:19 Diphtheria/Pertussis/Tetanus Vacc (Boostrix Vaccine Inj) 0.5 ml IM .ONCE ONE Stop: 09/19/17 16:01 Lactated Ringer's (Lr 1000 Ml Inj) 1,000 mls @ 100 mls/hr IV.CONT .Q10H [facility] Stop: 09/19/17 17:24 Last Admin: 09/19/17 00:05 Dose: 100 mls/hr Oxytocin (Pitocin 30 Units/Ns 500 Ml Premix) 30 units in 500 mls @ 100 mls/hr IV.SIG PRN PRN PRN Reason: Heavy bleeding Stop: 09/19/17 21:24 Ibuprofen (Motrin) 600 mg PO Q6HR PRN PRN Reason: cramping Last Admin: 09/19/17 02:33 Dose: 600 mg Measles/Mumps/Rubella Vaccine Live (M-M-R Ii Vaccine Inj) 0.5 ml SQ .ONCE ONE Stop: 09/19/17 16:01 Miscellaneous Information [place] 1 each OTHER UNSCH PRN PRN Reason: SEE LABEL COMMENTS Stop: 09/19/17 20:19 Miscellaneous Information ([facility] 1 each OTHER UNSCH PRN PRN Reason: SEE LABEL COMMENTS Stop: 09/19/17 20:19 Naloxone HCl (Narcan Inj) 0.4 mg IV.PUSH UNSCH PRN PRN Reason: SEE LABEL COMMENTS Stop: 09/19/17 20:19 Oxycodone/Acetaminophen (Percocet 5/325 Mg) 1 tab PO Q4H PRN PRN Reason: PAIN SCALE 3 TO 5 Oxycodone/Acetaminophen (Percocet 5/325 Mg) 2 tab PO Q4H PRN PRN Reason: PAIN SCALE 6 TO 10 Last Admin: 09/19/17 05:26 Dose: 2 tab Senna/Docusate Sodium (Sita-Colace) 2 tab PO Q12H PRN PRN Reason: CONSTIPATION Simethicone (Mylicon Chew) 80 mg PO QID PRN PRN Reason: FLATULENCE Sodium Chloride (Ns Flush) 2 ml IV.FLUSH PRN PRN PRN Reason: FLUSH AFTER USING IV ACCESS Sodium Chloride (Ns Flush) 2 ml IV.FLUSH BID JAN Assessment and Plan - Plan POD #1 S/P repeat C/S and cystotomy Will write orders for melchor and antibiotics Consider d/c home soon.
[2017-09-19] MEDS: Senna/Docusate Sodium 8.6/50 MG Tablet PO PRN (13:29)
[2017-09-19] MEDS ORDERED: Measles/Mumps/Rubella Vaccine Inj 0.5 ML Vial SQ ONE (16:00)
[2017-09-19] MEDS ORDERED: Diphtheria/Tetanus/Pertussis Vaccine Inj 0.5 ML Syringe IM ONE (16:00)
[2017-09-20] MEDS: Ibuprofen 600 MG Tablet PO PRN ×3 (04:53→18:12)
--- NOTE | 2017-09-20 08:11 | P.PNOB ---
Subjective Post op day: 2 Interval history: She is seen and examined bedside this morning. Patient eating and drinking without difficulty. Ambulating and voiding without problems. Patient feeling well overall but would like to stay 1 more day. Pain well controlled on current medication. Denies any chest pain/shortness of breath/dizziness. No calf tenderness. Objective Vital Signs/I&O: Intake & Output 09/19/17 09/20/17 09/20/17 18:59 06:59 18:59 Intake Total 1999 100 / 100 Balance 1999 100 / 100 Intake: IV 1999 100 / 100 LR 1000 mL Inj 1,000 ML @ 100 1000 / 1000 mls/hr IV.CONT .Q10H [facility] Rx#: [id number] Ancef Inj 2,000 MG In NS Inj 80 100 / 100 ML @ 200 mls/hr IV.SIG Q8H [facility] Rx#:[id number] Result Diagrams: 09/19/17 05:13 Objective Remarks: GENERAL: Well-nourished, well-developed patient. CARDIOVASCULAR: Regular rate and rhythm without murmurs, gallops, or rubs. RESPIRATORY: Breath sounds equal bilaterally. No accessory muscle use. ABDOMEN/GI: Abdomen soft, non-tender, bowel sounds present. Incision: Clean, dry and intact. Steri-Strips in place. No drainage from incision. Fundus: Firm, non-tender at umbilicus. GENITOURINARY: Light to moderate bleeding. EXTREMITIES: No cyanosis or edema, non-tender, without signs of DVT. Medications and IVs: Active Medications Cephalexin Monohydrate (Keflex) 500 mg PO DAILY [facility] Last Admin: 09/19/17 09:00 Dose: Not Given Citric Acid/Sodium Citrate (Sodium Citrate/Citric Acid Liq) 30 ml PO SUPERVISOR LOCOMOTIVE [facility] Stop: 09/22/17 11:44 Last Admin: 09/18/17 13:56 Dose: 30 ml Ibuprofen (Motrin) 600 mg PO Q6HR PRN PRN Reason: cramping Last Admin: 09/20/17 04:53 Dose: 600 mg Oxycodone/Acetaminophen (Percocet 5/325 Mg) 1 tab PO Q4H PRN PRN Reason: PAIN SCALE 3 TO 5 Oxycodone/Acetaminophen (Percocet 5/325 Mg) 2 tab PO Q4H PRN PRN Reason: PAIN SCALE 6 TO 10 Last Admin: 09/20/17 04:53 Dose: 2 tab Senna/Docusate Sodium (Sita-Colace) 2 tab PO Q12H PRN PRN Reason: CONSTIPATION Last Admin: 09/19/17 13:29 Dose: 2 tab Simethicone (Mylicon Chew) 80 mg PO QID PRN PRN Reason: FLATULENCE Sodium Chloride (Ns Flush) 2 ml IV.FLUSH PRN PRN PRN Reason: FLUSH AFTER USING IV ACCESS Sodium Chloride (Ns Flush) 2 ml IV.FLUSH BID JAN Last Admin: 09/20/17 08:10 Dose: Not Given Assessment and Plan - Diagnosis (1) Gestational diabetes mellitus (GDM) in third trimester Code(s): O24.419 - Gestational diabetes mellitus in , unspecified control Status: Acute Plan: Pod #2 repeat section 5 w/ BTL , bladder injury -Continue regular postop care -pain management with Motrin and Percocet -Urine has been clear, maintain Melchor 10 days total -CBC stable, no signs of acute anemia or infection -Anticipate DC tomorrow - Plan POD #1 S/P repeat C/S and cystotomy Will write orders for melchor and antibiotics Consider d/c home soon. Discharge Planning: Anticipate d/c tomorrow
[2017-09-20] MEDS: Senna/Docusate Sodium 8.6/50 MG Tablet PO PRN (09:38)
[2017-09-20 21:29] VITALS: RESP 18
[2017-09-21] MEDS: Ibuprofen 600 MG Tablet PO PRN (07:06)
[2017-09-21] MEDS: Senna/Docusate Sodium 8.6/50 MG Tablet PO PRN (08:10)
--- NOTE | 2017-09-21 08:45 | P.PNOB ---
Subjective Post op day: 3 Interval history: Ms Donnelly had no acute events overnight. She has noted some trace blood in her melchor bag. Pain is controlled, taking PO, voiding via melchor, has flatus but no BM yet, ambulating, and decreased lochia. Pt had tubal ligation. Breast and bottle feeding. She would like to go home today and will follow up in one week with [facility]. Denies CP, SOB, N/V/D, leg pain. Objective Vital Signs/I&O: Vital Signs 09/20/17 21:28 Respiratory Rate 18 Result Diagrams: 09/19/17 05:13 Objective Remarks: GENERAL: Well-nourished, well-developed patient in NAD. CARDIOVASCULAR: Regular rate and rhythm without murmurs, gallops, or rubs. RESPIRATORY: Breath sounds equal bilaterally. No accessory muscle use. ABDOMEN/GI: Abdomen soft, non-tender, bowel sounds present. Incision: Clean, dry and intact. Fundus: Firm, non-tender at umbilicus. GENITOURINARY: Light to moderate bleeding. EXTREMITIES: No cyanosis or edema, non-tender, without signs of DVT. Medications and IVs: Active Medications Cephalexin Monohydrate (Keflex) 500 mg PO DAILY [facility] Last Admin: 09/21/17 08:10 Dose: 500 mg Citric Acid/Sodium Citrate (Sodium Citrate/Citric Acid Liq) 30 ml PO SOLE LEVELING MACHINE OPERATOR [facility] Stop: 09/22/17 11:44 Last Admin: 09/18/17 13:56 Dose: 30 ml Ibuprofen (Motrin) 600 mg PO Q6HR PRN PRN Reason: cramping Last Admin: 09/21/17 07:06 Dose: 600 mg Oxycodone/Acetaminophen (Percocet 5/325 Mg) 1 tab PO Q4H PRN PRN Reason: PAIN SCALE 3 TO 5 Oxycodone/Acetaminophen (Percocet 5/325 Mg) 2 tab PO Q4H PRN PRN Reason: PAIN SCALE 6 TO 10 Last Admin: 09/21/17 07:06 Dose: 2 tab Senna/Docusate Sodium (Sita-Colace) 2 tab PO Q12H PRN PRN Reason: CONSTIPATION Last Admin: 09/21/17 08:10 Dose: 2 tab Simethicone (Mylicon Chew) 80 mg PO QID PRN PRN Reason: FLATULENCE Sodium Chloride (Ns Flush) 2 ml IV.FLUSH PRN PRN PRN Reason: FLUSH AFTER USING IV ACCESS Sodium Chloride (Ns Flush) 2 ml IV.FLUSH BID JAN Last Admin: 09/21/17 08:09 Dose: Not Given Assessment and Plan - Diagnosis (1) Gestational diabetes mellitus (GDM) in third trimester Code(s): O24.419 - Gestational diabetes mellitus in , unspecified control Status: Acute Plan: 32YO female Pod #3 repeat section 5 w/ BTL and simple bladder injury. Reduced lochia, Melchor with trace blood, AFVSS. -Continue regular postop care -pain management with Motrin and Percocet -Urine with trace blood, maintain Melchor 10 days total -Keflex 500 mg daily for ppx -CBC stable, no signs of acute anemia or infection -Anticipate DC today -F/u 1 week with [facility] PDMP checked and pt has not had an entry in the last year Pt will be discharged on Percocet for acute pain D/w Dr Harden
--- NOTE | 2017-09-25 11:12 | P.OP ---
Date of procedure: 09/25/17 Procedure: Preop diagnosis previous section at 39 weeks Postop diagnosis previous section at 39 weeks, incidental cystotomy bladder injury surgery repaired in layers Implants: Repeat Anesthesia: spinal Surgeon: Pan Coleman MD [employer]: [facility] Estimated blood loss (mL): 500 IV fluids (mL): 1,000 Urine output (mL): 100 Operation and Findings: Patient was taken to the operating room and after spinal anesthesia prepped for abdominal surgery draped appropriately. A Pfannenstiel incision was excised out of cast off. Incision carried the fascia sharply fascia dissected off the rectus muscle and rectus split in the midline. Pinnae cavity entered sharply. The incision stretched open and enlarged appropriately. Bladder blade placed large incision and the visceral peritoneum was densely adherent to the lower uterine segment and was sharply taken down. In the process of taking the bladder flap down a rent was made in the bladder dome that was approximately 4 cm in length. This was noticed at the time of that dissection but was prepared at the end of the procedure. The bladder blade was placed over the bladder at that time and the hysterotomy was made extended bluntly bilaterally. There are clear fluid noted. A male infant was delivered at 3:10 PM Apgars 8 /9 weight 3350 g no complications. A delayed cord clamping was done, then cord blood obtained. Placenta manually extracted and all remnants of tissue removed. The uterus exteriorized in the usual fashion and the hysterotomy closed running layer of 0 chromic followed by imbricating suture the same. Hemostasis was achieved and then the rent in the bladder was repaired at that time. The opening of bladder was delineated with [place] Thorpe clamps and then a 3-0 Vicryl running suture used to close the bladder mucosa running locking stitch. And then a second layer of 3-0 Vicryl used in the bladder adventitia closing over the top of the first layer giving us good seal. Sterile milk was injected in the Valladares catheter the bladder dilated there was no leak. The Valladares catheter is to be left in for 10-14 days. The uterus replaced the peritoneal cavity at that time blood suctioned the cul-de-sac gutters. The parietal peritoneum was identified but was not able to close due to its position, the fascia was closed running layer of 0 Vicryl the subcutaneous tissues closed with 3-0 plain catgut suture and the skin closed with subcuticular stitch of 3-0 Monocryl. Steri- Strips applied with a large pressure dressing. This may blood loss 500 cc the only complication was the incidental cystotomy which was repaired appropriately. Sputum sponge and needle counts correct 2 the patient taken recovery in stable condition.
== END 2017-09-21 11:52 | disposition home or self-care (01) ==
LOC: H2E 11:09 → H1EA 18:12
PROVIDERS: ADMIT Obstetrics & Gynecology Maternal & Fetal Medicine; ATTEND Obstetrics & Gynecology Maternal & Fetal Medicine